=== PATIENT | female | born 1945 | race Caucasian/White ===

== ENCOUNTER 2019-07-12 08:49 | Emergency (ER) | payer OTHER, BC ==
[2019-07-12 08:56] VITALS: BMI 34.0
--- NOTE | 2019-07-12 09:11 | PDOC ---
History of Present Illness - General Chief Complaint: Back Pain Stated Complaint: LWR BACK PAIN Time Seen by Provider: 07/12/19 09:10 - History of Present Illness Initial Comments: 07/12/19 10:01 73 y.o F hx of chronic back pain s/p back surgery for spinal stenosis (2008), HTN, HLD, presents to the ER with increased left sided back pain since . this pain is more severe than usual and she denies any trauma associated events at the time the pain started. She has taken gabapentin and tramadol so far as prescribed by her PCP Dr. Dave, with no relief. Pain is exacerbated by movement and relieved with lying down on her back, or sitting forward. She denies any bowel or bladder symptoms, saddle anesthesia, fevers, chills, night sweats, Past History - Past Medical History Allergies/Adverse Reactions: Allergies Allergy/AdvReac Type Severity Reaction Status Date / Time No Known Drug Allergies Allergy Verified 07/12/19 08:56 Home Medications: Ambulatory Orders Pravastatin Sodium [Pravachol -] 40 mg PO HS #0 tablet 12/19/11 Timolol 0.5% [Timoptic] 1 ml OU DAILY #0 droperette 12/19/11 Atenolol/Chlorthalidone [Tenoretic 100/25 Tablet] 1 each PO DAILY 04/11/14 Diltiazem Cd [Cardizem Cd -] 300 mg PO DAILY 07/12/19 Methylprednisolone [Medrol Dose Marin] 4 mg PO ASDIR #21 tablet 07/12/19 Oxycodone HCl/Acetaminophen [Percocet 5-325 mg Tablet] 1 tab PO Q6H PRN #20 tablet MDD 4 tabs 07/12/19 Anemia: No Asthma: No Cancer: No Cardiac Disorders: No CVA: No COPD: No CHF: No Dementia: No Diabetes: No GI Disorders: Yes (H/O ACID REFLUX) Disorders: No HTN: Yes Hypercholesterolemia: Yes Liver Disease: No Seizures: No Thyroid Disease: No - Surgical History Abdominal Surgery: No Appendectomy: No Cardiac Surgery: No Cholecystectomy: No Lung Surgery: No Neurologic Surgery: Yes (PLATE IN NECK,RODS IN LOWER BACK) Orthopedic Surgery: Yes - Immunization History Immunization Up to Date: Yes - Psycho Social/Smoking Cessation Hx Smoking Status: Yes Smoking History: Current every day smoker Have you smoked in the past 12 months: Yes Number of Cigarettes Smoked Daily: 0 If you are a former smoker, when did you quit?: 2010 Information on smoking cessation initiated: Yes 'Breaking Loose' booklet given: 12/12/11 Hx Alcohol Use: No Drug/Substance Use Hx: No Substance Use Type: Alcohol Hx Substance Use Treatment: No Review of Systems - Review of Systems Constitutional: No: Chills, Fever HEENTM: No: Eye Pain Cardiac (ROS): No: Chest Pain, Lightheadedness ABD/GI: No: Nausea, Vomiting : No: Burning, Dysuria, Hematuria, Incontinence Musculoskeletal: Yes: Back Pain Neurological: No: Headache, Numbness *Physical Exam - Vital Signs Last Vital Signs Temp Pulse Resp BP Pulse Ox 97.3 F L 147 H 18 147/72 98 07/12/19 08:51 07/12/19 08:51 07/12/19 08:51 07/12/19 08:51 07/12/19 08:51 - Physical Exam 07/12/19 12:56 PE: GENERAL: Awake, alert, and fully oriented, in no acute distress HEAD: No signs of trauma, normocephalic, atraumatic EYES: PERRLA, EOMI, sclera anicteric, conjunctiva clear ENT: Auricles normal inspection, hearing grossly normal, nares patent, oropharynx clear without exudates. Moist mucosa NECK: Normal ROM, supple, no lymphadenopathy, JVD, or masses LUNGS: No distress, speaks full sentences, clear to auscultation bilaterally HEART: Regular rate and rhythm, normal S1 and S2, no murmurs, rubs or gallops, peripheral pulses normal and equal bilaterally. ABDOMEN: Soft, nontender, normoactive bowel sounds. No guarding, no rebound. No masses EXTREMITIES : Normal inspection, tenderness in left hip. and left calf. no midline spinal tenderness. negative straight leg raise. NEUROLOGICAL: Cranial nerves II through XII grossly intact. Normal speech, normal gait, no focal sensorimotor deficits SKIN: Warm, Dry, normal turgor, no rashes or lesions noted Medical Decision Making - Medical Decision Making 07/12/19 10:25 73 y.o F hx of chronic back pain s/p back surgery for spinal stenosis (2008), HTN, HLD, presents to the ER with increased left sided back pain lumbo-sacral x-rays hip and pelvis x-rays 07/12/19 10:46 Meds: tylenol, oxycodone 5mg PO 07/12/19 11:52 Pt reassessed, pain moderately better. 07/12/19 12:47 LUMBAR X-RAYS Degenerative lumbar spondylosis upper lumbar disc spaces with mild upper lumbar dextroscoliosis surgical hardware in place. HIP & PELVIS X-RAY no suspicious findings in the bony pelvis or radiographically in the right of left hip 07/12/19 12:49 Discharge - Discharge Information Problems reviewed: Yes Clinical Impression/Diagnosis: Back pain Qualifiers: Back pain location: low back pain Chronicity: chronic Back pain laterality: left Sciatica presence: with sciatica Sciatica laterality: sciatica of left side Qualified Code(s): M54.42 - Lumbago with sciatica, left side Condition: Stable Disposition: HOME - Admission No - Additional Discharge Information Prescriptions: Methylprednisolone [Medrol Dose Marin] 4 mg PO ASDIR #21 tablet Oxycodone HCl/Acetaminophen [Percocet 5-325 mg Tablet] 1 tab PO Q6H PRN #20 tablet MDD 4 tabs PRN Reason: Severe Pain - Follow up/Referral Referrals: Weston Espino MD, [facility] [Staff Physician] - Edgardo Zavala MD [Staff Physician] - - Patient Discharge Instructions Patient Printed Discharge Instructions: DI for Back Pain With Sciatica Additional Instructions: Please follow up with your Primary Care Doctor within 48-72 hours - call for an appointment. You have been given referral information for spine surgeons in this discharge paper work. Your care is not complete until you follow up with one of them.Ambulate as tolerated and no heavy lifting. Take medications as they have been described. do not drive or make any important decisions while on this medication for it can make you drowsy. If you experience any worsening pain, swelling, numbness, weakness please return to ER - Post Discharge Activity
[2019-07-12] MEDS ORDERED: ACETAMINOPHEN 500 MG TABLET (FP) PO ONE (09:49)
[2019-07-12] MEDS ORDERED: ACETAMINOPHEN 500 MG TABLET (FP) ONE (10:18)
[2019-07-12] MEDS ORDERED: oxyCODONE HCL 5 MG TABLET PO ONE (10:46)
--- NOTE | 2019-07-12 10:52 | PDOC ---
Attending Attestation - Resident Resident Name: Laura Marcus - ED Attending Attestation I have performed the following: I have examined & evaluated the patient, The case was reviewed & discussed with the resident, I agree w/resident's findings & plan - HPI HPI: 07/12/19 10:45 73-year-old female with history of spinal stenosis status post surgery in 2012 with intermittent need for pain medication, otherwise maintained on Tylenol at baseline and ambulates with walker presents now with progressive left low back pain since Thanksgiving, unrelenting despite pain medications by her PCP. Patient reports sharp pain from her left buttock radiating laterally and anteriorly to her left knee, no associated bowel or bladder issues or weakness, no paresthesias. Seen by PCP and prescribed tramadol and Tylenol without relief , she has required Percocet and cortisone injections in the past, presents for evaluation. No recent falls, but she did fall earlier this year before this pain exacerbation started. - Physicial Exam PE: 07/12/19 10:52 Afebrile, vitals as noted, heart rate normal on my examination, triage tachycardia noted. Patient states was walking in and was in pain. Alert seated in stretcher in no acute distress, speaking full sentences No midline spine tenderness to palpation or deformity. no hip ttp, skin normal 5/5 flex/extend b/l hips/knees/ankles/toes. 2+ distal pulses with intact sensation - Medical Decision Making 07/12/19 10:55 73-year-old female with history of low spine surgery with atraumatic exacerbation of lumbar radiculopathy, no other red flags on history or physical exam, neurovascularly intact. Lumbar spine x-ray given time since last imaging. Last MRI was in 2011 around her surgery. Adjust pain medication course, will give Medrol Dosepak and increase to Percocet , which the patient has tolerated well in the past PCP follow-up and spine specialty referral 07/12/19 12:49 feels much better after percocet, actually sitting with leg crossed now. agree with d/c plan, daughter at bedside. will switch from tramadol to percocet (more effective for patient in the past), with PCP and spine f/u. understands return criteria.
[2019-07-12] MEDS ORDERED: oxyCODONE HCL 5 MG TABLET ONE (11:20)
[2019-07-12] MEDS ORDERED: KETOROLAC TROMETHAMINE 60 MG/2 ML VIAL IM ONE ×2 (11:37→12:48)
[2019-07-12] MEDS ORDERED: KETOROLAC TROMETHAMINE 60 MG/2 ML VIAL ONE (12:41)
[2019-07-12 13:04] VITALS: BP 132/71; PULSE 57; TEMP 97.8
== END 2019-07-12 13:05 | disposition home or self-care (01) ==
LOC: JER 08:49
PROC: 3E0233Z Introduction of Anti-inflammatory into Muscle, Percutaneous Approach (ICD-10-PCS; principal; 2019-07-12)
PROC: 3E0233Z Introduction of Anti-inflammatory into Muscle, Percutaneous Approach (ICD-10-PCS; 2019-07-12)
DX: M54.42 Lumbago with sciatica, left side (principal); F17.210 Nicotine dependence, cigarettes, uncomplicated; K21.9 Gastro-esophageal reflux disease without esophagitis; I10 Essential (primary) hypertension; E78.00 Pure hypercholesterolemia, unspecified
CPT/HCPCS: 72100-TC-FY; 73523-TC-FY; 96372; 99281-25

== ENCOUNTER 2021-07-04 08:59 | Inpatient (IN) | payer OTHER, BC ==
[2021-07-04] MEDS ORDERED: SODIUM CHLORIDE 2,694 ML IV ONE (10:26)
[2021-07-04] MEDS ORDERED: SODIUM CHLORIDE 0.9% 500 ML INFUS.BAG IV ONE (10:37)
[2021-07-04 12:10] LABS: BASO % 0.7 % (0-2.0); EOS % 1.6 % (0-4.5); HEMATOCRIT 39.7 % (32.4-45.2); HEMOGLOBIN 13.5 GM/dL (10.7-15.3); LYMPH % 19.8 % (8-40); MCH 29.7 pg (25.7-33.7); MCHC 34.1 g/dl (32.0-36.0); MEAN CELL VOLUME 87.1 fl (80-96); NEUT % 70.9 % (42.8-82.8); PLATELET COUNT 212 10^3/uL (134-434); RBC 4.56 M/mm3 (3.60-5.2); RDW 13.6 % (11.6-15.6)
[2021-07-04 12:14] LABS: INR 1.03 (0.83-1.09)
[2021-07-04 12:17] LABS: ACTIVATED PTT 28.3 SECONDS (25.2-36.5)
[2021-07-04 12:26] LABS: ALBUMIN 3.4 g/dl (3.4-5.0); CHLORIDE 105 mmol/L (98-107); SODIUM 142 mmol/L (136-145)
[2021-07-04 12:27] LABS: ANION GAP 9 MMOL/L (8-16); CO2 28 mmol/L (21-32); GLUCOSE,RANDOM 77 mg/dL (74-106)
[2021-07-04 12:29] LABS: CREATININE 0.5 mg/dL (0.55-1.3)
[2021-07-04 12:30] LABS: SGOT/AST 18 U/L (15-37); SGPT/ALT 18 U/L (13-61)
[2021-07-04 12:31] LABS: BILIRUBIN,TOTAL 0.5 mg/dL (0.2-1); TOT PROT 6.7 g/dl (6.4-8.2)
[2021-07-04 12:32] LABS: ALK PHOS 73 U/L (45-117)
[2021-07-04 13:12] LABS: ERYTHROCYTE SEDIMENTATION RATE 29 mm/hr (0-30)
[2021-07-04] MEDS ORDERED: POTASSIUM CHLORIDE TABS 20 MEQ TABLET.ER (FP) PO ONE ×2 (13:12→14:52)
[2021-07-04] MEDS ORDERED: CLINDAMYCIN 900 MG PREMIX IVPB 900 MG/50 ML BAG IVPB ONE ×2 (13:52→14:52)
[2021-07-04] MEDS: ATORVASTATIN CA 10 MG TABLET (FP) PO SCH (22:28)
[2021-07-05 02:20] VITALS: BMI 31.4
[2021-07-05 04:00] LABS: PH,URINE 6.5 (5.0-8.0); URINE APPEARANCE CLEAR; URINE BILIRUBIN NEGATIVE (NEGATIVE); URINE COLOR YELLOW; URINE GLUCOSE (UA) NEGATIVE (NEGATIVE); URINE KETONE NEGATIVE (NEGATIVE); URINE LEUK ESTERASE NEGATIVE (NEGATIVE); URINE NITRITE NEGATIVE (NEGATIVE); URINE PROTEIN NEGATIVE (NEGATIVE); URINE UROBILINOGEN 0.2 mg/dL (0.2-1.0)
[2021-07-05] MEDS ORDERED: ATENOLOL PO SCH (10:00)
[2021-07-05] MEDS ORDERED: CHLORTHALIDONE 25 MG TABLET PO SCH (10:00)
[2021-07-05] MEDS ORDERED: [UNRECOGNIZED DRUG - OTHER] PO SCH (10:00)
[2021-07-05] MEDS ORDERED: CHLORTHALIDONE PO SCH (10:00)
[2021-07-05] MEDS ORDERED: PT OWN MED DRAWER 7, Y5N ONE (10:02)
[2021-07-05] MEDS: ENOXAPARIN NA (PORCINE) 40 MG/0.4 ML DISP.SYRIN SQ SCH (10:45)
[2021-07-05] MEDS: POTASSIUM CHLORIDE TABS 20 MEQ TABLET.ER (FP) PO SCH ×2 (10:45→21:54)
[2021-07-05] MEDS: NICOTINE 14 MG/24 HOURS TOPICAL PATCH TD SCH (10:45)
[2021-07-05] MEDS: ATENOLOL 50 MG TABLET (FP) PO SCH (12:34)
[2021-07-05 14:50] LABS: BASO % 0.7 % (0-2.0); EOS % 1.6 % (0-4.5); HEMATOCRIT 36.7 % (32.4-45.2); HEMOGLOBIN 12.6 GM/dL (10.7-15.3); MCH 29.8 pg (25.7-33.7); MCHC 34.3 g/dl (32.0-36.0); MEAN CELL VOLUME 86.9 fl (80-96); MEAN PLT VOLUME 8.4 fl (7.5-11.1); MONO % 6.9 % (3.8-10.2); NEUT % 71.8 % (42.8-82.8); PLATELET COUNT 208 10^3/uL (134-434); RBC 4.23 M/mm3 (3.60-5.2); RDW 13.6 % (11.6-15.6); WHITE BLOOD COUNT 4.7 K/mm3 (4.0-10.0)
[2021-07-05 15:15] LABS: CALCIUM 9.3 mg/dL (8.5-10.1); MAGNESIUM 1.8 mg/dL (1.8-2.4)
[2021-07-05 15:16] LABS: BLOOD UREA NITROGEN 10.6 mg/dL (7-18)
[2021-07-05 15:19] LABS: CREATININE 0.5 mg/dL (0.55-1.3); PHOSPHOROUS 2.8 mg/dL (2.5-4.9)
[2021-07-05] MEDS: ATORVASTATIN CA 10 MG TABLET (FP) PO SCH (21:54)
[2021-07-06] MEDS: POTASSIUM CHLORIDE TABS 20 MEQ TABLET.ER (FP) PO SCH ×2 (09:27→22:00)
[2021-07-06] MEDS: NICOTINE 14 MG/24 HOURS TOPICAL PATCH TD SCH (09:27)
[2021-07-06] MEDS: ENOXAPARIN NA (PORCINE) 40 MG/0.4 ML DISP.SYRIN SQ SCH (09:27)
[2021-07-06] MEDS: ATENOLOL 50 MG TABLET (FP) PO SCH (09:28)
[2021-07-06 11:08] LABS: BASO % 0.7 % (0-2.0); EOS % 1.3 % (0-4.5); HEMATOCRIT 38.9 % (32.4-45.2); HEMOGLOBIN 13.3 GM/dL (10.7-15.3); LYMPH % 15.7 % (8-40); MCH 29.8 pg (25.7-33.7); MCHC 34.2 g/dl (32.0-36.0); MEAN PLT VOLUME 8.2 fl (7.5-11.1); MONO % 5.9 % (3.8-10.2); NEUT % 76.4 % (42.8-82.8); PLATELET COUNT 224 10^3/uL (134-434); RBC 4.47 M/mm3 (3.60-5.2); RDW 13.8 % (11.6-15.6); WHITE BLOOD COUNT 5.5 K/mm3 (4.0-10.0)
[2021-07-06 11:52] LABS: CALCIUM 9.6 mg/dL (8.5-10.1)
[2021-07-06 11:53] LABS: MAGNESIUM 1.9 mg/dL (1.8-2.4)
[2021-07-06 11:54] LABS: BLOOD UREA NITROGEN 9.7 mg/dL (7-18)
[2021-07-06 11:56] LABS: CREATININE 0.5 mg/dL (0.55-1.3); PHOSPHOROUS 2.6 mg/dL (2.5-4.9)
[2021-07-06] MEDS: CHOLECALCIFEROL (VIT D3) 1,000 UNIT (25 MCG) TABLET PO SCH (13:45)
[2021-07-06] MEDS: ATORVASTATIN CA 10 MG TABLET (FP) PO SCH (22:00)
[2021-07-07] MEDS: CHOLECALCIFEROL (VIT D3) 1,000 UNIT (25 MCG) TABLET PO SCH (09:45)
[2021-07-07] MEDS: ENOXAPARIN NA (PORCINE) 40 MG/0.4 ML DISP.SYRIN SQ SCH (09:45)
[2021-07-07] MEDS: NICOTINE 14 MG/24 HOURS TOPICAL PATCH TD SCH (09:45)
[2021-07-07] MEDS: ATENOLOL 50 MG TABLET (FP) PO SCH (09:46)
[2021-07-07] MEDS: ATORVASTATIN CA 10 MG TABLET (FP) PO SCH (21:51)
[2021-07-08] MEDS: NICOTINE 14 MG/24 HOURS TOPICAL PATCH TD SCH (10:10)
[2021-07-08] MEDS: ENOXAPARIN NA (PORCINE) 40 MG/0.4 ML DISP.SYRIN SQ SCH (10:10)
[2021-07-08] MEDS: CHOLECALCIFEROL (VIT D3) 1,000 UNIT (25 MCG) TABLET PO SCH (10:10)
[2021-07-08] MEDS: ATENOLOL 50 MG TABLET (FP) PO SCH (10:11)
[2021-07-08 10:21] LABS: HEMATOCRIT 39.4 % (32.4-45.2); HEMOGLOBIN 13.5 GM/dL (10.7-15.3); MCHC 34.3 g/dl (32.0-36.0); MEAN CELL VOLUME 87.4 fl (80-96); MEAN PLT VOLUME 8.1 fl (7.5-11.1); PLATELET COUNT 227 10^3/uL (134-434); RBC 4.51 M/mm3 (3.60-5.2); RDW 13.4 % (11.6-15.6); WHITE BLOOD COUNT 5.8 K/mm3 (4.0-10.0)
[2021-07-08 10:42] LABS: CALCIUM 9.5 mg/dL (8.5-10.1)
[2021-07-08 10:43] LABS: ALBUMIN 3.1 g/dl (3.4-5.0); BLOOD UREA NITROGEN 12.6 mg/dL (7-18); MAGNESIUM 2.1 mg/dL (1.8-2.4)
[2021-07-08 10:46] LABS: CREATININE 0.5 mg/dL (0.55-1.3); PHOSPHOROUS 3.7 mg/dL (2.5-4.9)
[2021-07-08 10:47] LABS: BILIRUBIN,TOTAL 0.5 mg/dL (0.2-1); TOT PROT 6.3 g/dl (6.4-8.2)
[2021-07-08] MEDS ORDERED: ACETAMINOPHEN 325 MG TABLET (FP) PO ONE (14:00)
[2021-07-08 14:09] LABS: MYOGLOBIN SERUM 51 ng/mL (25-58)
[2021-07-08] MEDS: POTASSIUM CHLORIDE TABS 20 MEQ TABLET.ER (FP) PO SCH (21:25)
[2021-07-08] MEDS: ATORVASTATIN CA 10 MG TABLET (FP) PO SCH (21:25)
[2021-07-09] MEDS ORDERED: ACETAMINOPHEN 325 MG TABLET (FP) PO ONE (04:43)
[2021-07-09 10:21] LABS: CALCIUM 8.9 mg/dL (8.5-10.1)
[2021-07-09 10:22] LABS: BLOOD UREA NITROGEN 15.3 mg/dL (7-18)
[2021-07-09 10:25] LABS: CREATININE 0.5 mg/dL (0.55-1.3)
[2021-07-09] MEDS: ATENOLOL 50 MG TABLET (FP) PO SCH (11:32)
[2021-07-09] MEDS: POTASSIUM CHLORIDE TABS 20 MEQ TABLET.ER (FP) PO SCH (11:32)
[2021-07-09] MEDS: CHOLECALCIFEROL (VIT D3) 1,000 UNIT (25 MCG) TABLET PO SCH (11:32)
[2021-07-09] MEDS: ENOXAPARIN NA (PORCINE) 40 MG/0.4 ML DISP.SYRIN SQ SCH (11:33)
[2021-07-09] MEDS: NICOTINE 14 MG/24 HOURS TOPICAL PATCH TD SCH (11:33)
[2021-07-09 14:39] VITALS: BP 140/58; PULSE 59; TEMP 98.2
== END 2021-07-09 17:16 | DRG 93 ==
LOC: JER 08:59 → J5S 17:27 → OBSVTOIN 17:27 → JERBED 17:39 → UNDOADMOB 17:39 → INTOOBSV 17:39 → J5S 20:34 → JERBED 20:34 → UNDOADMOB 07-05 13:02 → J5S 07-05 13:02
PROVIDERS: ADMIT Internal Medicine; ATTEND Internal Medicine
DX: R29.6 Repeated falls (principal); E87.6 Hypokalemia; I10 Essential (primary) hypertension; E78.5 Hyperlipidemia, unspecified; M25.462 Effusion, left knee; M54.42 Lumbago with sciatica, left side; G89.29 Other chronic pain; M17.0 Bilateral primary osteoarthritis of knee
CPT/HCPCS: 36415; 70450-TC; 70551-TC; 71045-TC-FY; 72100-TC-FY; 72131-TC; 73562-TC-LT-FY; 73590-TC-LT-FY; 73630-TC-LT; 80048; 80053; 81003; 82085; 82550; 82607; 82746; 83036; 83605; 83735; 83874; 84100; 84439; 84443; 84481; 84484; 85025; 85027; 85610; 85651; 85730; 86038; 86140; 87040; 87086; 93005; 93010; 93971-TC; 97116-GP; 97162-GP; 99285-25; C9803; U0003; U0005

== ENCOUNTER 2021-11-25 09:40 | Observation (INO) | payer OTHER, BC ==
[2021-11-25 12:47] LABS: BASO % 0.6 % (0-2.0); EOS % 0.5 % (0-4.5); HEMATOCRIT 41.3 % (32.4-45.2); HEMOGLOBIN 13.9 GM/dL (10.7-15.3); LYMPH % 11.2 % (8-40); MCH 29.2 pg (25.7-33.7); MCHC 33.5 g/dl (32.0-36.0); MEAN PLT VOLUME 8.1 fl (7.5-11.1); NEUT % 80.7 % (42.8-82.8); PLATELET COUNT 197 10^3/uL (134-434); RBC 4.75 M/mm3 (3.60-5.2); RDW 13.7 % (11.6-15.6); WHITE BLOOD COUNT 7.5 K/mm3 (4.0-10.0)
[2021-11-25 13:08] LABS: CALCIUM 10.2 mg/dL (8.5-10.1)
[2021-11-25 13:09] LABS: ALBUMIN 3.9 g/dl (3.4-5.0); BLOOD UREA NITROGEN 14.2 mg/dL (7-18)
[2021-11-25 13:11] LABS: CREATININE 0.5 mg/dL (0.55-1.3)
[2021-11-25 13:13] LABS: BILIRUBIN,TOTAL 0.6 mg/dL (0.2-1)
[2021-11-25] MEDS ORDERED: ACETAMINOPHEN 325 MG TABLET (FP) PO PRN ×2 (13:45→21:30)
[2021-11-25] MEDS ORDERED: ATENOLOL 50 MG TABLET (FP) ONE (14:51)
[2021-11-25] MEDS: ATENOLOL 50 MG TABLET (FP) PO SCH (14:56)
[2021-11-25 20:09] LABS: PH,URINE 5.5 (5.0-8.0); URINE APPEARANCE CLOUDY; URINE BILIRUBIN NEGATIVE (NEGATIVE); URINE COLOR YELLOW; URINE GLUCOSE (UA) NEGATIVE (NEGATIVE); URINE KETONE TRACE (NEGATIVE); URINE LEUK ESTERASE NEGATIVE (NEGATIVE); URINE NITRITE NEGATIVE (NEGATIVE); URINE PROTEIN NEGATIVE (NEGATIVE)
[2021-11-25] MEDS ORDERED: ACETAMINOPHEN 1000 MG/100 ML BAG IVPB ONE (21:36)
[2021-11-25] MEDS ORDERED: ATORVASTATIN CA 20 MG TABLET (FP) PO SCH (22:00)
[2021-11-25] MEDS ORDERED: ATORVASTATIN CA 20 MG TABLET (FP) ONE (22:03)
[2021-11-25] MEDS ORDERED: ACETAMINOPHEN INJECTION 100 ML IVPB ONE (22:03)
[2021-11-26 02:58] VITALS: BMI 29.7
[2021-11-26 07:19] LABS: CALCIUM 9.6 mg/dL (8.5-10.1)
[2021-11-26 07:20] LABS: BLOOD UREA NITROGEN 17.7 mg/dL (7-18)
[2021-11-26 07:23] LABS: CREATININE 0.4 mg/dL (0.55-1.3)
[2021-11-26] MEDS: ATENOLOL 50 MG TABLET (FP) PO SCH (10:59)
[2021-11-26] MEDS: ENOXAPARIN NA (PORCINE) 40 MG/0.4 ML DISP.SYRIN SQ SCH (10:59)
[2021-11-26] MEDS ORDERED: POTASSIUM CHLORIDE ORAL LIQUID 20 MEQ/15 ML PO ONE (11:30)
[2021-11-26] MEDS ORDERED: ATORVASTATIN CA 10 MG TABLET (FP) PO SCH (18:06)
[2021-11-26] MEDS: TIMOLOL 0.5% OPHTHALMIC SOL 5 ML BOTTLE OU SCH (21:34)
[2021-11-26] MEDS: MEMANTINE HCL 5 MG TABLET (UD) PO SCH (21:34)
[2021-11-27 09:36] VITALS: PULSE 62
[2021-11-27] MEDS: MEMANTINE HCL 5 MG TABLET (UD) PO SCH (09:36)
[2021-11-27] MEDS: ENOXAPARIN NA (PORCINE) 40 MG/0.4 ML DISP.SYRIN SQ SCH (09:36)
[2021-11-27] MEDS: TIMOLOL 0.5% OPHTHALMIC SOL 5 ML BOTTLE OU SCH (11:13)
[2021-11-27 14:28] VITALS: BP 137/66; TEMP 99.3
== END 2021-11-27 19:16 ==
LOC: JER 09:40 → JERBED 14:20 → J6S 23:28
PROVIDERS: ADMIT Internal Medicine; ATTEND Internal Medicine
PROC: 3E033NZ Introduction of Analgesics, Hypnotics, Sedatives into Peripheral Vein, Percutaneous Approach (ICD-10-PCS; principal; 2021-11-25)
PROC: 3E023GC Introduction of Other Therapeutic Substance into Muscle, Percutaneous Approach (ICD-10-PCS; 2021-11-25)
DX: S82.302A Unspecified fracture of lower end of left tibia, initial encounter for closed fracture (principal); M62.81 Muscle weakness (generalized); M79.672 Pain in left foot; M79.671 Pain in right foot; R29.6 Repeated falls; G89.29 Other chronic pain; M54.9 Dorsalgia, unspecified; I35.0 Nonrheumatic aortic (valve) stenosis; I10 Essential (primary) hypertension; E78.5 Hyperlipidemia, unspecified; W18.39XA Other fall on same level, initial encounter; Y93.89 Activity, other specified; Y92.099 Unspecified place in other non-institutional residence as the place of occurrence of the external cause; F03.90 Unspecified dementia, unspecified severity, without behavioral disturbance, psychotic disturbance, mood disturbance, and anxiety; K21.9 Gastro-esophageal reflux disease without esophagitis; Z87.891 Personal history of nicotine dependence; Z29.8 Encounter for other specified prophylactic measures
CPT/HCPCS: 36415; 73562-TC-LT-FY; 73562-TC-RT-FY; 73610-TC-LT-FY; 73610-TC-RT-FY; 73630-TC-LT; 73630-TC-RT-FY; 80048; 80053; 81003; 84484; 85025; 87086; 93005; 93010; 96372; 96374; 97116-GP; 97161-GP; 99285-25; C9803-CS; G0378; U0003; U0005

== ENCOUNTER 2022-08-23 11:07 | Inpatient (IN) | payer OTHER, BC ==
[2022-08-23 12:12] LABS: BASO % 0.4 % (0-2.0); EOS % 0.2 % (0-4.5); HEMOGLOBIN 14.1 GM/dL (10.7-15.3); LYMPH % 9.7 % (8-40); MCH 29.4 pg (25.7-33.7); MCHC 33.5 g/dl (32.0-36.0); MEAN CELL VOLUME 87.6 fl (80-96); MEAN PLT VOLUME 8.9 fl (7.5-11.1); MONO % 3.1 % (3.8-10.2); NEUT % 86.6 % (42.8-82.8); PLATELET COUNT 243 10^3/uL (134-434); RBC 4.79 M/mm3 (3.60-5.2); RDW 13.7 % (11.6-15.6); WHITE BLOOD COUNT 8.2 K/mm3 (4.0-10.0)
[2022-08-23 12:20] LABS: INR 1.11 (0.83-1.09); PROTHROMBIN TIME (PATIENT) 12.8 SEC (9.7-13.0)
[2022-08-23 12:23] LABS: ACTIVATED PTT 33.2 SECONDS (25.2-36.5)
[2022-08-23 13:04] LABS: ALBUMIN 4.1 g/dl (3.4-5.0); BLOOD UREA NITROGEN 13.7 mg/dL (7-18); CALCIUM 10.1 mg/dL (8.5-10.1)
[2022-08-23 13:07] LABS: CREATININE 0.5 mg/dL (0.55-1.3)
[2022-08-23 13:09] LABS: BILIRUBIN,TOTAL 0.8 mg/dL (0.2-1); TOT PROT 7.2 g/dl (6.4-8.2)
[2022-08-23 16:39] LABS: PH,URINE 7.5 (5.0-8.0); URINE APPEARANCE CLOUDY; URINE BILIRUBIN NEGATIVE (NEGATIVE); URINE COLOR YELLOW; URINE GLUCOSE (UA) NEGATIVE (NEGATIVE); URINE KETONE 1+ (NEGATIVE); URINE LEUK ESTERASE NEGATIVE (NEGATIVE); URINE NITRITE NEGATIVE (NEGATIVE); URINE PROTEIN TRACE (NEGATIVE); URINE UROBILINOGEN 0.2 mg/dL (0.2-1.0)
[2022-08-23] MEDS ORDERED: ACETAMINOPHEN 325 MG TABLET (FP) PO PRN (23:25)
[2022-08-24] MEDS: SODIUM CHLORIDE 0.45% 1,000 ML IV SCH (05:19)
[2022-08-24] MEDS ORDERED: dilTIAZem HCL 60 MG TABLET ONE (09:28)
[2022-08-24] MEDS ORDERED: LISINOPRIL 10 MG TABLET ONE (09:29)
[2022-08-24] MEDS: LISINOPRIL 10 MG TABLET PO SCH (09:29)
[2022-08-24] MEDS: MEMANTINE HCL 5 MG TABLET (UD) PO SCH ×2 (12:40→22:00)
[2022-08-24] MEDS: TIMOLOL 0.5% OPHTHALMIC SOL 5 ML BOTTLE OU SCH (21:43)
[2022-08-24] MEDS ORDERED: ATORVASTATIN CA 10 MG TABLET (FP) ONE (21:54)
[2022-08-24] MEDS: ATORVASTATIN CA 10 MG TABLET (FP) PO SCH (22:00)
[2022-08-25] MEDS: SODIUM CHLORIDE 0.45% 1,000 ML IV SCH ×2 (06:14→21:22)
[2022-08-25] MEDS ORDERED: dilTIAZem HCL 60 MG TABLET ONE (07:46)
[2022-08-25] MEDS ORDERED: LISINOPRIL 10 MG TABLET ONE (07:47)
[2022-08-25 08:01] LABS: BASO % 0.4 % (0-2.0); EOS % 1.5 % (0-4.5); HEMATOCRIT 36.3 % (32.4-45.2); HEMOGLOBIN 12.1 GM/dL (10.7-15.3); LYMPH % 18.7 % (8-40); MCH 29.4 pg (25.7-33.7); MCHC 33.4 g/dl (32.0-36.0); MEAN CELL VOLUME 87.9 fl (80-96); MEAN PLT VOLUME 9.1 fl (7.5-11.1); MONO % 8.4 % (3.8-10.2); PLATELET COUNT 189 10^3/uL (134-434); RBC 4.13 M/mm3 (3.60-5.2); RDW 13.5 % (11.6-15.6); WHITE BLOOD COUNT 5.2 K/mm3 (4.0-10.0)
[2022-08-25] MEDS: LISINOPRIL 10 MG TABLET PO SCH (09:59)
[2022-08-25] MEDS: MEMANTINE HCL 5 MG TABLET (UD) PO SCH ×2 (09:59→21:21)
[2022-08-25] MEDS: TIMOLOL 0.5% OPHTHALMIC SOL 5 ML BOTTLE OU SCH (13:32)
[2022-08-25] MEDS: ATORVASTATIN CA 10 MG TABLET (FP) PO SCH (21:21)
[2022-08-26 01:17] VITALS: BMI 23.0
[2022-08-26] MEDS: SODIUM CHLORIDE 0.45% 1,000 ML IV SCH (01:27)
[2022-08-26] MEDS: TIMOLOL 0.5% OPHTHALMIC SOL 5 ML BOTTLE OU SCH (10:31)
[2022-08-26] MEDS: MEMANTINE HCL 5 MG TABLET (UD) PO SCH ×2 (10:31→22:20)
[2022-08-26] MEDS: LISINOPRIL 10 MG TABLET PO SCH (10:31)
[2022-08-26] MEDS: ATORVASTATIN CA 10 MG TABLET (FP) PO SCH (22:20)
[2022-08-27] MEDS: SODIUM CHLORIDE 0.45% 1,000 ML IV SCH ×2 (00:59→17:20)
[2022-08-27 07:30] LABS: BASO % 0.4 % (0-2.0); EOS % 2.2 % (0-4.5); HEMATOCRIT 33.5 % (32.4-45.2); LYMPH % 17.3 % (8-40); MCH 29.2 pg (25.7-33.7); MEAN CELL VOLUME 88.5 fl (80-96); MEAN PLT VOLUME 8.8 fl (7.5-11.1); MONO % 7.5 % (3.8-10.2); NEUT % 72.6 % (42.8-82.8); PLATELET COUNT 163 10^3/uL (134-434); RBC 3.78 M/mm3 (3.60-5.2); RDW 13.8 % (11.6-15.6)
[2022-08-27 07:51] LABS: CALCIUM 8.9 mg/dL (8.5-10.1)
[2022-08-27 07:52] LABS: BLOOD UREA NITROGEN 17.4 mg/dL (7-18)
[2022-08-27 07:55] LABS: CREATININE 0.4 mg/dL (0.55-1.3)
[2022-08-27 07:57] LABS: BILIRUBIN,TOTAL 0.3 mg/dL (0.2-1)
[2022-08-27 07:59] LABS: ALBUMIN 2.6 g/dl (3.4-5.0); TOT PROT 4.9 g/dl (6.4-8.2)
[2022-08-27] MEDS ORDERED: METHIMAZOLE 5 MG TABLET PO SCH ×2 (10:00→22:00)
[2022-08-27] MEDS: TIMOLOL 0.5% OPHTHALMIC SOL 5 ML BOTTLE OU SCH (10:32)
[2022-08-27] MEDS: MEMANTINE HCL 5 MG TABLET (UD) PO SCH ×2 (10:32→21:47)
[2022-08-27] MEDS: LISINOPRIL 10 MG TABLET PO SCH (10:32)
[2022-08-27] MEDS: POLYETHYLENE GLYCOL (HEALTHYLAX) 3350 17 GM PACKET PO SCH (12:49)
[2022-08-27] MEDS: ATORVASTATIN CA 10 MG TABLET (FP) PO SCH (21:47)
[2022-08-28] MEDS: SODIUM CHLORIDE 0.45% 1,000 ML IV SCH ×2 (03:14→22:18)
[2022-08-28] MEDS: POLYETHYLENE GLYCOL (HEALTHYLAX) 3350 17 GM PACKET PO SCH (11:44)
[2022-08-28] MEDS: METHIMAZOLE 5 MG TABLET PO SCH (11:45)
[2022-08-28] MEDS: MEMANTINE HCL 5 MG TABLET (UD) PO SCH ×2 (11:45→22:19)
[2022-08-28] MEDS: TIMOLOL 0.5% OPHTHALMIC SOL 5 ML BOTTLE OU SCH (11:45)
[2022-08-28] MEDS: LISINOPRIL 10 MG TABLET PO SCH (11:45)
[2022-08-28] MEDS: ATORVASTATIN CA 10 MG TABLET (FP) PO SCH (22:19)
[2022-08-29 09:34] VITALS: BP 161/58; PULSE 80; RESP 16; TEMP 99
[2022-08-29] MEDS: MEMANTINE HCL 5 MG TABLET (UD) PO SCH (09:34)
[2022-08-29] MEDS: LISINOPRIL 10 MG TABLET PO SCH (09:34)
[2022-08-29] MEDS: TIMOLOL 0.5% OPHTHALMIC SOL 5 ML BOTTLE OU SCH (09:35)
[2022-08-29] MEDS: POLYETHYLENE GLYCOL (HEALTHYLAX) 3350 17 GM PACKET PO SCH (09:35)
[2022-08-29] MEDS: METHIMAZOLE 5 MG TABLET PO SCH (09:35)
== END 2022-08-29 15:05 | DRG 312 ==
LOC: JER 11:07 → JERBED 17:17 → J4S 08-25 17:51 → OBSVTOIN 08-26 11:01
PROVIDERS: ADMIT Internal Medicine; ATTEND Internal Medicine
DX: R55 Syncope and collapse (principal); F05 Delirium due to known physiological condition; I31.39 Other pericardial effusion (noninflammatory); E78.5 Hyperlipidemia, unspecified; E05.90 Thyrotoxicosis, unspecified without thyrotoxic crisis or storm; F03.90 Unspecified dementia, unspecified severity, without behavioral disturbance, psychotic disturbance, mood disturbance, and anxiety; K56.41 Fecal impaction; I12.9 Hypertensive chronic kidney disease with stage 1 through stage 4 chronic kidney disease, or unspecified chronic kidney disease; N18.9 Chronic kidney disease, unspecified; R29.6 Repeated falls; S00.83XA Contusion of other part of head, initial encounter; S05.11XA Contusion of eyeball and orbital tissues, right eye, initial encounter; W06.XXXA Fall from bed, initial encounter; Y92.098 Other place in other non-institutional residence as the place of occurrence of the external cause
CPT/HCPCS: 36415; 70450-TC; 70486-TC; 71045-TC-FY; 72125-TC; 72170-TC-FY; 73564-TC-LT-FY; 80053; 81003; 82550; 82553; 82607; 83735; 84439; 84443; 84481; 84484; 85025; 85610; 85730; 86376; 86850; 86900; 86901; 87086; 87186; 93005; 93010; 93306-TC; 93880-TC; 97116-GP; 97161-GP; 99291; C9803-CS; G0378; U0003; U0005

== ENCOUNTER 2023-06-10 19:48 | Inpatient (IN) | payer OTHER, BC ==
[2023-06-10 19:56] VITALS: BMI 29.9
[2023-06-10] MEDS ORDERED: SODIUM CHLORIDE 0.45% 1,000 ML IV SCH (21:15)
[2023-06-10 21:32] LABS: BASO % 0.1 % (0-2.0); EOS % 0.4 % (0-4.5); HEMATOCRIT 42.4 % (32.4-45.2); HEMOGLOBIN 13.9 GM/dL (10.7-15.3); LYMPH % 7.2 % (8-40); MCH 28.8 pg (25.7-33.7); MCHC 32.9 g/dl (32.0-36.0); MEAN CELL VOLUME 87.5 fl (80-96); MEAN PLT VOLUME 8.1 fl (7.5-11.1); MONO % 7.9 % (3.8-10.2); NEUT % 84.4 % (42.8-82.8); PLATELET COUNT 304 10^3/uL (134-434); RBC 4.84 M/mm3 (3.60-5.2); RDW 14.8 % (11.6-15.6); WHITE BLOOD COUNT 10.3 K/mm3 (4.0-10.0)
[2023-06-10 21:35] LABS: VENOUS BASE EXCESS 5.5 mmol/L (-2-2); VENOUS O2 SATURATION 95.7 % (70-80); VENOUS PCO2 38.7 mmHg (38-52); VENOUS PH 7.493 (7.310-7.410)
[2023-06-10 21:52] LABS: CHLORIDE 123 mmol/L (98-107); SODIUM 156 mmol/L (136-145)
[2023-06-10 21:54] LABS: ALBUMIN 2.6 g/dl (3.4-5.0); BLOOD UREA NITROGEN 37.7 mg/dL (7-18); CALCIUM 9.4 mg/dL (8.5-10.1); CO2 31 mmol/L (21-32); GLUCOSE,RANDOM 179 mg/dL (74-106); MAGNESIUM 2.3 mg/dL (1.8-2.4)
[2023-06-10 21:57] LABS: CREATININE 0.8 mg/dL (0.55-1.3); SGOT/AST 13 U/L (15-37); SGPT/ALT 39 U/L (13-61)
[2023-06-10 21:59] LABS: BILIRUBIN,TOTAL 0.4 mg/dL (0.2-1); TOT PROT 6.4 g/dl (6.4-8.2)
[2023-06-10 22:00] LABS: ALK PHOS 84 U/L (45-117)
[2023-06-10] MEDS ORDERED: CALCIUM CHLORIDE 10% 1 GM/10 ML *VIAL IVPUSH ONE (22:02)
[2023-06-10] MEDS ORDERED: CALCIUM CHLORIDE 1 GM/10 ML *DISP.SYRIN ONE (22:05)
[2023-06-10] MEDS: KCL 10 MEQ IVPB 10 MEQ/100 ML INFUS.BAG IVPB SCH ×2 (22:15→23:58)
[2023-06-10 22:25] LABS: ANION GAP 2 mmol/L (4-13); POTASSIUM 2.9 mmol/L (3.5-5.1)
[2023-06-11 01:35] LABS: EPI CELLS >36 /uL (0-25.1); HYALINE CASTS 30 /uL (0-3.1); URINE APPEARANCE TURBID; URINE BACTERIA >9,000 /uL (0-1359); URINE BILIRUBIN NEGATIVE (NEGATIVE); URINE COLOR ORANGE; URINE GLUCOSE (UA) NEGATIVE (NEGATIVE); URINE KETONE NEGATIVE (NEGATIVE); URINE LEUK ESTERASE 3+ (NEGATIVE); URINE NITRITE POSITIVE (NEGATIVE); URINE PROTEIN 2+ (NEGATIVE); URINE UROBILINOGEN 0.2 mg/dL (0.2-1.0); URINE WBC 11977 /uL (0-25.8)
[2023-06-11] MEDS ORDERED: CEFTRIAXONE 1,000 MG in DEXTROSE 5%-WATER - 50 ML IVPB ONE (01:40)
[2023-06-11] MEDS: KCL 10 MEQ IVPB 10 MEQ/100 ML INFUS.BAG IVPB SCH ×4 (01:50→12:03)
[2023-06-11 01:55] LABS: POTASSIUM 3.2 mmol/L (3.5-5.1)
[2023-06-11 01:56] LABS: CALCIUM 9.9 mg/dL (8.5-10.1)
[2023-06-11 01:57] LABS: BLOOD UREA NITROGEN 35.8 mg/dL (7-18)
[2023-06-11 02:00] LABS: CREATININE 0.8 mg/dL (0.55-1.3)
[2023-06-11] MEDS ORDERED: CEFTRIAXONE 1 GM/50 ML BAG ONE ×2 (02:51→09:38)
[2023-06-11 03:26] LABS: URINE RBC 948.6 /uL (0-23.9); YEAST NONE SEEN (NEGATIVE)
[2023-06-11] MEDS ORDERED: VANCOMYCIN PREMIX 1.5 GM 1,500 MG/300 ML BAG IVPB SCH ×2 (06:00→09:00)
[2023-06-11] MEDS ORDERED: SODIUM CHLORIDE 0.45% 1,000 ML IV SCH (06:28)
[2023-06-11] MEDS ORDERED: KCL 10 MEQ IVPB 10 MEQ/100 ML INFUS.BAG IVPB SCH (08:00)
[2023-06-11 08:17] LABS: HEMATOCRIT 39.8 % (32.4-45.2); HEMOGLOBIN 13.1 GM/dL (10.7-15.3); MCH 29.1 pg (25.7-33.7); MCHC 32.9 g/dl (32.0-36.0); MEAN CELL VOLUME 88.6 fl (80-96); MEAN PLT VOLUME 8.4 fl (7.5-11.1); PLATELET COUNT 265 10^3/uL (134-434); RDW 14.4 % (11.6-15.6)
[2023-06-11 08:19] LABS: CHLORIDE 121 mmol/L (98-107); SODIUM 155 mmol/L (136-145)
[2023-06-11 08:21] LABS: CALCIUM 9.3 mg/dL (8.5-10.1)
[2023-06-11 08:22] LABS: ALBUMIN 2.4 g/dl (3.4-5.0); BLOOD UREA NITROGEN 35.5 mg/dL (7-18); CO2 32 mmol/L (21-32); GLUCOSE,RANDOM 164 mg/dL (74-106)
[2023-06-11 08:25] LABS: CREATININE 0.7 mg/dL (0.55-1.3); PHOSPHOROUS 2.8 mg/dL (2.5-4.9); SGOT/AST 10 U/L (15-37); SGPT/ALT 33 U/L (13-61)
[2023-06-11 08:26] LABS: TOT PROT 5.8 g/dl (6.4-8.2)
[2023-06-11 08:27] LABS: ALK PHOS 76 U/L (45-117); BILIRUBIN,TOTAL 0.3 mg/dL (0.2-1)
[2023-06-11 08:30] LABS: ANION GAP 2 mmol/L (4-13); POTASSIUM 2.8 mmol/L (3.5-5.1)
[2023-06-11] MEDS ORDERED: KCL 10 MEQ IVPB 20 MEQ/200 ML INFUS.BAG IVPB ONE (09:38)
[2023-06-11] MEDS ORDERED: HYDROCHLOROTHIAZIDE 25 MG TABLET (FP) PO SCH (10:00)
[2023-06-11] MEDS: LISINOPRIL 10 MG TABLET PO SCH (10:00)
[2023-06-11] MEDS: METHIMAZOLE 5 MG TABLET PO SCH (10:00)
[2023-06-11] MEDS ORDERED: CEFTRIAXONE 1 GM in DEXTROSE 5%-WATER - 50 ML IVPB SCH (10:00)
[2023-06-11] MEDS: ATENOLOL 50 MG TABLET (FP) PO SCH (10:00)
[2023-06-11] MEDS: MEMANTINE HCL 5 MG TABLET (UD) PO SCH ×2 (10:00→21:52)
[2023-06-11] MEDS: ENOXAPARIN NA (PORCINE) 40 MG/0.4 ML DISP.SYRIN SQ SCH (10:50)
[2023-06-11] MEDS ORDERED: KCL 10 MEQ IVPB 10 MEQ/100 ML INFUS.BAG IVPB ONE (12:01)
[2023-06-11] MEDS: TIMOLOL 0.5% OPHTHALMIC SOL 5 ML BOTTLE OU SCH (12:02)
[2023-06-11] MEDS ORDERED: PIPERACILLIN/TAZOB 3.375 GM 3.375 GM/50 ML BAG IVPB ONE (14:09)
[2023-06-11] MEDS: PIPERACILLIN/TAZOB 3.375 GM 3.375 GM in DEXTROSE 5%-WATER - 50 ML IVPB SCH ×2 (14:11→17:38)
[2023-06-11] MEDS: dilTIAZem HCL 60 MG TABLET PO SCH ×2 (17:38→21:52)
[2023-06-11] MEDS ORDERED: SODIUM CHLORIDE 0.45% 1,000 ML with POTASSIUM CHLORIDE 20 MEQ IV SCH (21:11)
[2023-06-11] MEDS: ATORVASTATIN CA 10 MG TABLET (FP) PO SCH (21:52)
[2023-06-11] MEDS ORDERED: SODIUM CHLORIDE 0.45%/POT 20 MEQ/1,000 ML INFUS.BAG IV SCH (22:30)
[2023-06-12] MEDS: PIPERACILLIN/TAZOB 3.375 GM 3.375 GM in DEXTROSE 5%-WATER - 50 ML IVPB SCH ×3 (01:47→17:22)
[2023-06-12] MEDS: dilTIAZem HCL 60 MG TABLET PO SCH ×4 (05:32→23:06)
[2023-06-12] MEDS ORDERED: VANCOMYCIN PREMIX 1.5 GM 1,500 MG/300 ML BAG IVPB SCH (09:00)
[2023-06-12 09:20] LABS: BASO % 0.2 % (0-2.0); EOS % 1.9 % (0-4.5); HEMATOCRIT 39.5 % (32.4-45.2); HEMOGLOBIN 12.5 GM/dL (10.7-15.3); LYMPH % 10.5 % (8-40); MCH 28.4 pg (25.7-33.7); MCHC 31.7 g/dl (32.0-36.0); MEAN CELL VOLUME 89.7 fl (80-96); MEAN PLT VOLUME 8.5 fl (7.5-11.1); MONO % 6.1 % (3.8-10.2); NEUT % 81.3 % (42.8-82.8); PLATELET COUNT 241 10^3/uL (134-434); RBC 4.41 M/mm3 (3.60-5.2); RDW 14.1 % (11.6-15.6); WHITE BLOOD COUNT 9.3 K/mm3 (4.0-10.0)
[2023-06-12] MEDS ORDERED: PIPERACILLIN/TAZOBACTAM 3.375 GM VIAL IVPB ONE (09:42)
[2023-06-12] MEDS: ENOXAPARIN NA (PORCINE) 40 MG/0.4 ML DISP.SYRIN SQ SCH (09:56)
[2023-06-12] MEDS: MEMANTINE HCL 5 MG TABLET (UD) PO SCH ×2 (09:57→22:52)
[2023-06-12] MEDS: ATENOLOL 50 MG TABLET (FP) PO SCH (09:57)
[2023-06-12] MEDS: METHIMAZOLE 5 MG TABLET PO SCH (09:57)
[2023-06-12] MEDS: LISINOPRIL 10 MG TABLET PO SCH (09:57)
[2023-06-12 10:09] LABS: CHLORIDE 120 mmol/L (98-107); SODIUM 155 mmol/L (136-145)
[2023-06-12 10:15] LABS: ALBUMIN 2.4 g/dl (3.4-5.0); CALCIUM 9.3 mg/dL (8.5-10.1); CO2 29 mmol/L (21-32); GLUCOSE,RANDOM 165 mg/dL (74-106)
[2023-06-12 10:18] LABS: CREATININE 0.7 mg/dL (0.55-1.3); SGOT/AST 9 U/L (15-37); SGPT/ALT 29 U/L (13-61)
[2023-06-12 10:20] LABS: BILIRUBIN,TOTAL 0.6 mg/dL (0.2-1); TOT PROT 5.8 g/dl (6.4-8.2)
[2023-06-12 10:21] LABS: ALK PHOS 71 U/L (45-117)
[2023-06-12 10:23] LABS: ANION GAP 6 mmol/L (4-13); POTASSIUM 2.8 mmol/L (3.5-5.1)
[2023-06-12] MEDS ORDERED: POTASSIUM CHLORIDE ORAL LIQUID 20 MEQ/15 ML PO ONE (10:29)
[2023-06-12] MEDS: TIMOLOL 0.5% OPHTHALMIC SOL 5 ML BOTTLE OU SCH (11:23)
[2023-06-12] MEDS: D5-1/2NS+20 MEQ KCL - 20 MEQ/1,000 ML INFUS.BAG IV SCH ×2 (11:24→23:01)
[2023-06-12] MEDS: KCL 10 MEQ IVPB 10 MEQ/100 ML INFUS.BAG IVPB SCH ×3 (11:24→13:17)
[2023-06-12] MEDS: ATORVASTATIN CA 10 MG TABLET (FP) PO SCH (22:52)
[2023-06-13] MEDS: PIPERACILLIN/TAZOB 3.375 GM 3.375 GM in DEXTROSE 5%-WATER - 50 ML IVPB SCH ×2 (01:35→09:11)
[2023-06-13] MEDS: dilTIAZem HCL 60 MG TABLET PO SCH ×3 (06:25→21:56)
[2023-06-13 08:45] LABS: POTASSIUM 3.5 mmol/L (3.5-5.1)
[2023-06-13 08:51] LABS: BLOOD UREA NITROGEN 25.6 mg/dL (7-18)
[2023-06-13 08:54] LABS: CREATININE 0.7 mg/dL (0.55-1.3)
[2023-06-13 08:55] LABS: CALCIUM 8.9 mg/dL (8.5-10.1)
[2023-06-13] MEDS: MEMANTINE HCL 5 MG TABLET (UD) PO SCH ×2 (09:08→21:56)
[2023-06-13] MEDS: ATENOLOL 50 MG TABLET (FP) PO SCH (09:08)
[2023-06-13] MEDS: LISINOPRIL 10 MG TABLET PO SCH (09:08)
[2023-06-13] MEDS: ENOXAPARIN NA (PORCINE) 40 MG/0.4 ML DISP.SYRIN SQ SCH (09:08)
[2023-06-13] MEDS: METHIMAZOLE 5 MG TABLET PO SCH (09:08)
[2023-06-13] MEDS: TIMOLOL 0.5% OPHTHALMIC SOL 5 ML BOTTLE OU SCH (09:10)
[2023-06-13] MEDS: D5-1/2NS+20 MEQ KCL - 20 MEQ/1,000 ML INFUS.BAG IV SCH ×2 (10:35→23:59)
[2023-06-13] MEDS: CEFTRIAXONE 2 GM in DEXTROSE 5%-WATER 100 ML IVPB SCH (14:07)
[2023-06-13] MEDS: AMINO ACIDS/PROTEIN HYDROLYS 30 ML LIQUID.PKT PO SCH (16:41)
[2023-06-13] MEDS: ATORVASTATIN CA 10 MG TABLET (FP) PO SCH (21:56)
[2023-06-14] MEDS: dilTIAZem HCL 60 MG TABLET PO SCH ×3 (06:13→22:33)
[2023-06-14] MEDS: AMINO ACIDS/PROTEIN HYDROLYS 30 ML LIQUID.PKT PO SCH ×2 (08:05→17:10)
[2023-06-14] MEDS: CEFTRIAXONE 2 GM in DEXTROSE 5%-WATER 100 ML IVPB SCH (09:58)
[2023-06-14] MEDS: ENOXAPARIN NA (PORCINE) 40 MG/0.4 ML DISP.SYRIN SQ SCH (09:58)
[2023-06-14] MEDS: LISINOPRIL 10 MG TABLET PO SCH (09:59)
[2023-06-14] MEDS: TIMOLOL 0.5% OPHTHALMIC SOL 5 ML BOTTLE OU SCH (09:59)
[2023-06-14] MEDS: ATENOLOL 50 MG TABLET (FP) PO SCH (09:59)
[2023-06-14] MEDS: MEMANTINE HCL 5 MG TABLET (UD) PO SCH ×2 (09:59→22:33)
[2023-06-14] MEDS: MULTIVIT-MINERALS ORAL LIQUID PO SCH (10:03)
[2023-06-14] MEDS: METHIMAZOLE 5 MG TABLET PO SCH (10:03)
[2023-06-14] MEDS: ASCORBIC ACID 250 MG TABLET (FP) PO SCH (10:03)
[2023-06-14] MEDS: D5-1/2NS+20 MEQ KCL - 20 MEQ/1,000 ML INFUS.BAG IV SCH ×2 (10:30→23:55)
[2023-06-14] MEDS: ATORVASTATIN CA 10 MG TABLET (FP) PO SCH (22:33)
[2023-06-15] MEDS: INSULIN (NOVOLOG) ASPART 100 UNITS/ML 10ML VIAL SQ SCH ×3 (06:10→16:36)
[2023-06-15] MEDS: dilTIAZem HCL 60 MG TABLET PO SCH ×3 (06:11→21:39)
[2023-06-15] MEDS: AMINO ACIDS/PROTEIN HYDROLYS 30 ML LIQUID.PKT PO SCH ×2 (08:18→16:36)
[2023-06-15 09:42] LABS: POTASSIUM 3.9 mmol/L (3.5-5.1)
[2023-06-15 09:46] LABS: BLOOD UREA NITROGEN 14.4 mg/dL (7-18); CALCIUM 8.4 mg/dL (8.5-10.1)
[2023-06-15 09:50] LABS: CREATININE 0.4 mg/dL (0.55-1.3)
[2023-06-15] MEDS: MULTIVIT-MINERALS ORAL LIQUID PO SCH (10:37)
[2023-06-15] MEDS: METHIMAZOLE 5 MG TABLET PO SCH (10:37)
[2023-06-15] MEDS: ENOXAPARIN NA (PORCINE) 40 MG/0.4 ML DISP.SYRIN SQ SCH (10:38)
[2023-06-15] MEDS: ATENOLOL 50 MG TABLET (FP) PO SCH (10:44)
[2023-06-15] MEDS: CEFTRIAXONE 2 GM in DEXTROSE 5%-WATER 100 ML IVPB SCH (10:44)
[2023-06-15] MEDS: MEMANTINE HCL 5 MG TABLET (UD) PO SCH ×2 (10:44→21:39)
[2023-06-15] MEDS: ASCORBIC ACID 250 MG TABLET (FP) PO SCH (10:44)
[2023-06-15] MEDS: LISINOPRIL 10 MG TABLET PO SCH (10:44)
[2023-06-15] MEDS: TIMOLOL 0.5% OPHTHALMIC SOL 5 ML BOTTLE OU SCH (10:45)
[2023-06-15] MEDS: D5-1/2NS+20 MEQ KCL - 20 MEQ/1,000 ML INFUS.BAG IV SCH (13:21)
[2023-06-15] MEDS: COLLAGENASE CLOSTRIDIUM HIST. 30 GRAMS TUBE TP SCH ×2 (16:07→16:08)
[2023-06-15] MEDS ORDERED: INSULIN (NOVOLOG) ASPART 100 UNITS/ML 10ML VIAL ONE (16:31)
[2023-06-15] MEDS: ATORVASTATIN CA 10 MG TABLET (FP) PO SCH (21:39)
[2023-06-16] MEDS: dilTIAZem HCL 60 MG TABLET PO SCH ×3 (06:18→21:06)
[2023-06-16] MEDS: INSULIN (NOVOLOG) ASPART 100 UNITS/ML 10ML VIAL SQ SCH ×3 (06:35→16:26)
[2023-06-16 08:32] LABS: BASO % 0.4 % (0-2.0); EOS % 2.1 % (0-4.5); HEMATOCRIT 33.3 % (32.4-45.2); HEMOGLOBIN 10.8 GM/dL (10.7-15.3); LYMPH % 14.1 % (8-40); MCH 28.5 pg (25.7-33.7); MCHC 32.3 g/dl (32.0-36.0); MEAN CELL VOLUME 88.2 fl (80-96); MEAN PLT VOLUME 8.6 fl (7.5-11.1); MONO % 4.7 % (3.8-10.2); NEUT % 78.7 % (42.8-82.8); PLATELET COUNT 169 10^3/uL (134-434); RBC 3.78 M/mm3 (3.60-5.2); RDW 14.1 % (11.6-15.6); WHITE BLOOD COUNT 6.8 K/mm3 (4.0-10.0)
[2023-06-16 08:40] LABS: POTASSIUM 3.8 mmol/L (3.5-5.1)
[2023-06-16 08:45] LABS: CALCIUM 8.3 mg/dL (8.5-10.1)
[2023-06-16 08:46] LABS: ALBUMIN 2.1 g/dl (3.4-5.0); BLOOD UREA NITROGEN 9.6 mg/dL (7-18)
[2023-06-16 08:49] LABS: CREATININE 0.4 mg/dL (0.55-1.3)
[2023-06-16 08:50] LABS: BILIRUBIN,TOTAL 0.3 mg/dL (0.2-1); TOT PROT 4.9 g/dl (6.4-8.2)
[2023-06-16] MEDS: ATENOLOL 50 MG TABLET (FP) PO SCH (11:26)
[2023-06-16] MEDS: MEMANTINE HCL 5 MG TABLET (UD) PO SCH ×2 (11:26→21:06)
[2023-06-16] MEDS: CEFTRIAXONE 2 GM in DEXTROSE 5%-WATER 100 ML IVPB SCH (11:26)
[2023-06-16] MEDS: LISINOPRIL 10 MG TABLET PO SCH (11:26)
[2023-06-16] MEDS: ENOXAPARIN NA (PORCINE) 40 MG/0.4 ML DISP.SYRIN SQ SCH (11:26)
[2023-06-16] MEDS: ASCORBIC ACID 250 MG TABLET (FP) PO SCH (11:26)
[2023-06-16] MEDS: AMINO ACIDS/PROTEIN HYDROLYS 30 ML LIQUID.PKT PO SCH ×2 (11:29→17:01)
[2023-06-16] MEDS: METHIMAZOLE 5 MG TABLET PO SCH (11:29)
[2023-06-16] MEDS: MULTIVIT-MINERALS ORAL LIQUID PO SCH (11:29)
[2023-06-16] MEDS: TIMOLOL 0.5% OPHTHALMIC SOL 5 ML BOTTLE OU SCH (11:30)
[2023-06-16] MEDS: D5-1/2NS+20 MEQ KCL - 20 MEQ/1,000 ML INFUS.BAG IV SCH (11:38)
[2023-06-16] MEDS: ATORVASTATIN CA 10 MG TABLET (FP) PO SCH (21:06)
[2023-06-17] MEDS: dilTIAZem HCL 60 MG TABLET PO SCH ×3 (05:55→22:17)
[2023-06-17] MEDS: INSULIN (NOVOLOG) ASPART 100 UNITS/ML 10ML VIAL SQ SCH ×3 (06:07→16:25)
[2023-06-17] MEDS: LISINOPRIL 10 MG TABLET PO SCH (10:11)
[2023-06-17] MEDS: MULTIVIT-MINERALS ORAL LIQUID PO SCH (10:11)
[2023-06-17] MEDS: MEMANTINE HCL 5 MG TABLET (UD) PO SCH ×2 (10:11→22:17)
[2023-06-17] MEDS: ATENOLOL 50 MG TABLET (FP) PO SCH (10:11)
[2023-06-17] MEDS: ASCORBIC ACID 250 MG TABLET (FP) PO SCH (10:11)
[2023-06-17] MEDS: CEFTRIAXONE 2 GM in DEXTROSE 5%-WATER 100 ML IVPB SCH (10:11)
[2023-06-17] MEDS: METHIMAZOLE 5 MG TABLET PO SCH (10:12)
[2023-06-17] MEDS: ENOXAPARIN NA (PORCINE) 40 MG/0.4 ML DISP.SYRIN SQ SCH (10:28)
[2023-06-17] MEDS: AMINO ACIDS/PROTEIN HYDROLYS 30 ML LIQUID.PKT PO SCH ×2 (10:28→16:41)
[2023-06-17] MEDS: TIMOLOL 0.5% OPHTHALMIC SOL 5 ML BOTTLE OU SCH (10:30)
[2023-06-17] MEDS ORDERED: INSULIN (NOVOLOG) ASPART 100 UNITS/ML 10ML VIAL ONE ×2 (11:10→17:38)
[2023-06-17 22:16] VITALS: BP 142/64; PULSE 60; RESP 20; TEMP 98.2
[2023-06-17] MEDS: ATORVASTATIN CA 10 MG TABLET (FP) PO SCH (22:17)
== END 2023-06-18 04:30 | DRG 689 ==
LOC: JER 19:48 → JERBED 06-11 01:38 → J7W 06-11 15:33
PROVIDERS: ADMIT Internal Medicine; ATTEND Internal Medicine
DX: N39.0 Urinary tract infection, site not specified (principal); L89.153 Pressure ulcer of sacral region, stage 3; E87.0 Hyperosmolality and hypernatremia; I24.89 Other forms of acute ischemic heart disease; I10 Essential (primary) hypertension; F03.90 Unspecified dementia, unspecified severity, without behavioral disturbance, psychotic disturbance, mood disturbance, and anxiety; E86.0 Dehydration; E78.5 Hyperlipidemia, unspecified; E87.6 Hypokalemia
CPT/HCPCS: 0241U-QW; 36415; 70450-TC; 71046-TC-FY; 71260-TC; 74177-TC; 80048; 80053; 81003; 82803; 82962; 83605; 83735; 84100; 84439; 84443; 84484; 85025; 85027; 87040; 87086; 87186; 87635; 93005; 93010; 99285-25; J3480; Q9967

== ENCOUNTER 2023-08-23 13:58 | Inpatient (IN) | payer OTHER, BC ==
[2023-08-23 15:01] LABS: BASO % 0.6 % (0-2.0); EOS % 2.3 % (0-4.5); HEMATOCRIT 39.1 % (32.4-45.2); LYMPH % 15.5 % (8-40); MCH 28.3 pg (25.7-33.7); MCHC 33.1 g/dl (32.0-36.0); MEAN CELL VOLUME 85.3 fl (80-96); MEAN PLT VOLUME 8.2 fl (7.5-11.1); NEUT % 73.6 % (42.8-82.8); PLATELET COUNT 342 10^3/uL (134-434); RBC 4.58 M/mm3 (3.60-5.2); RDW 16.6 % (11.6-15.6); WHITE BLOOD COUNT 8.6 K/mm3 (4.0-10.0)
[2023-08-23 15:09] LABS: INR 1.27 (0.83-1.09); PROTHROMBIN TIME (PATIENT) 14.7 SEC (9.7-13.0)
[2023-08-23 15:11] LABS: ACTIVATED PTT 33.9 SECONDS (25.2-36.5)
[2023-08-23 15:20] LABS: CHLORIDE 107 mmol/L (98-107); SODIUM 138 mmol/L (136-145)
[2023-08-23 15:23] LABS: ALBUMIN 2.8 g/dl (3.4-5.0); BLOOD UREA NITROGEN 20.1 mg/dL (7-18); CO2 28 mmol/L (21-32); GLUCOSE,RANDOM 98 mg/dL (74-106)
[2023-08-23 15:26] LABS: CREATININE 0.5 mg/dL (0.55-1.3); EPI CELLS 15 /uL (0-25.1); HYALINE CASTS 193 /uL (0-3.1); PH,URINE 6.5 (5.0-8.0); SGOT/AST 58 U/L (15-37); SGPT/ALT 14 U/L (13-61); URINE APPEARANCE TURBID; URINE BILIRUBIN 1+ (NEGATIVE); URINE COLOR RED; URINE GLUCOSE (UA) NEGATIVE (NEGATIVE); URINE KETONE NEGATIVE (NEGATIVE); URINE LEUK ESTERASE 3+ (NEGATIVE); URINE NITRITE POSITIVE (NEGATIVE); URINE PROTEIN 3+ (NEGATIVE); URINE WBC 2333 /uL (0-25.8)
[2023-08-23 15:27] LABS: BILIRUBIN,TOTAL 0.4 mg/dL (0.2-1); TOT PROT 7.1 g/dl (6.4-8.2)
[2023-08-23 15:29] LABS: ALK PHOS 97 U/L (45-117)
[2023-08-23 15:33] LABS: ANION GAP 3 mmol/L (4-13); POTASSIUM 7.2 mmol/L (3.5-5.1)
[2023-08-23 15:46] LABS: URINE BACTERIA 759 /uL (0-1359); URINE RBC 30518 /uL (0-23.9); YEAST NONE SEEN (NEGATIVE)
[2023-08-23] MEDS ORDERED: VANCOMYCIN/WATER 1250 MG 1,250 MG/250 ML BAG IVPB ONE ×2 (15:49→22:37)
[2023-08-23] MEDS ORDERED: CEFTRIAXONE 1,000 MG in DEXTROSE 5%-WATER - 50 ML IVPB ONE (15:49)
[2023-08-23] MEDS ORDERED: ACETAMINOPHEN 1000 MG/100 ML BAG IVPB ONE (15:49)
[2023-08-23] MEDS ORDERED: ACETAMINOPHEN INJECTION 100 ML IVPB ONE (15:53)
[2023-08-23] MEDS ORDERED: VANCOMYCIN 1 GRAM (PRE-DOCKED) 1,000 MG/250 ML BAG IVPB ONE (15:53)
[2023-08-23] MEDS ORDERED: CEFTRIAXONE 1 GM/50 ML BAG ONE (15:53)
[2023-08-23 16:52] LABS: POTASSIUM 4.1 mmol/L (3.5-5.1)
[2023-08-23 16:54] LABS: ALBUMIN 2.9 g/dl (3.4-5.0)
[2023-08-23 16:55] LABS: BLOOD UREA NITROGEN 18.5 mg/dL (7-18)
[2023-08-23 16:58] LABS: CREATININE 0.4 mg/dL (0.55-1.3)
[2023-08-23 16:59] LABS: BILIRUBIN,TOTAL 0.3 mg/dL (0.2-1); TOT PROT 6.6 g/dl (6.4-8.2)
[2023-08-23] MEDS: VANCOMYCIN/WATER 1250 MG 1,250 MG/250 ML BAG IVPB SCH ×2 (22:44→23:26)
[2023-08-24] MEDS ORDERED: VANCOMYCIN/WATER 1250 MG 1,250 MG/250 ML BAG IVPB SCH (04:00)
[2023-08-24 07:34] LABS: HEMATOCRIT 34.5 % (32.4-45.2); HEMOGLOBIN 11.3 GM/dL (10.7-15.3); MCH 28.1 pg (25.7-33.7); MCHC 32.8 g/dl (32.0-36.0); MEAN CELL VOLUME 85.9 fl (80-96); MEAN PLT VOLUME 8.3 fl (7.5-11.1); PLATELET COUNT 273 10^3/uL (134-434); RBC 4.02 M/mm3 (3.60-5.2)
[2023-08-24 07:51] LABS: POTASSIUM 3.9 mmol/L (3.5-5.1)
[2023-08-24 08:08] LABS: CALCIUM 9.7 mg/dL (8.5-10.1)
[2023-08-24 08:09] LABS: ALBUMIN 2.7 g/dl (3.4-5.0); BLOOD UREA NITROGEN 17.6 mg/dL (7-18); MAGNESIUM 1.9 mg/dL (1.8-2.4)
[2023-08-24 08:12] LABS: CREATININE 0.4 mg/dL (0.55-1.3); PHOSPHOROUS 3.2 mg/dL (2.5-4.9)
[2023-08-24 08:13] LABS: TOT PROT 6.1 g/dl (6.4-8.2)
[2023-08-24 08:14] LABS: BILIRUBIN,TOTAL 0.3 mg/dL (0.2-1)
[2023-08-24] MEDS ORDERED: COLLAGENASE CLOSTRIDIUM HIST. 30 GRAMS TUBE TP SCH (10:00)
[2023-08-24] MEDS ORDERED: MEMANTINE HCL 5 MG TABLET (UD) PO SCH (10:00)
[2023-08-24] MEDS ORDERED: ZINC SULFATE 220 MG TABLET PO SCH (11:00)
[2023-08-24] MEDS: MEMANTINE HCL 5 MG TABLET (UD) PO SCH ×2 (11:43→22:47)
[2023-08-24] MEDS: CHOLECALCIFEROL (VIT D3 5000 UNITS) 125 MCG TAB PO SCH (11:43)
[2023-08-24] MEDS: METHIMAZOLE 5 MG TABLET PO SCH (11:43)
[2023-08-24] MEDS ORDERED: ATENOLOL 50 MG TABLET (FP) ONE (11:45)
[2023-08-24] MEDS ORDERED: LISINOPRIL 10 MG TABLET ONE (11:45)
[2023-08-24] MEDS ORDERED: CEFTRIAXONE 1 GM/50 ML BAG ONE (11:46)
[2023-08-24] MEDS: LISINOPRIL 10 MG TABLET PO SCH (11:49)
[2023-08-24] MEDS: CEFTRIAXONE 1 GM in DEXTROSE 5%-WATER - 50 ML IVPB SCH (11:49)
[2023-08-24] MEDS: ATENOLOL 50 MG TABLET (FP) PO SCH (11:49)
[2023-08-24] MEDS: dilTIAZem HCL 60 MG TABLET PO SCH ×2 (14:00→22:42)
[2023-08-24] MEDS ORDERED: BISACODYL 10 MG SUPP.RECT PR ONE (16:00)
[2023-08-24] MEDS: TIMOLOL 0.5% OPHTHALMIC SOL 5 ML BOTTLE OU SCH (17:24)
[2023-08-24 18:56] VITALS: BMI 25.2
[2023-08-24] MEDS: ATORVASTATIN CA 10 MG TABLET (FP) PO SCH (22:46)
[2023-08-25] MEDS: VANCOMYCIN/WATER 1250 MG 1,250 MG/250 ML BAG IVPB SCH (01:03)
[2023-08-25] MEDS: dilTIAZem HCL 60 MG TABLET PO SCH ×3 (06:41→21:46)
[2023-08-25] MEDS: METHIMAZOLE 5 MG TABLET PO SCH (09:36)
[2023-08-25] MEDS: LISINOPRIL 10 MG TABLET PO SCH (09:36)
[2023-08-25] MEDS: ATENOLOL 50 MG TABLET (FP) PO SCH (09:36)
[2023-08-25] MEDS: ZINC SULFATE 220 MG CAPSULE (FP) PO SCH (09:36)
[2023-08-25] MEDS: ASCORBIC ACID 500 MG TABLET (FP) PO SCH (09:36)
[2023-08-25] MEDS: CEFTRIAXONE 1 GM in DEXTROSE 5%-WATER - 50 ML IVPB SCH (09:36)
[2023-08-25] MEDS: TIMOLOL 0.5% OPHTHALMIC SOL 5 ML BOTTLE OU SCH (09:37)
[2023-08-25] MEDS: MEMANTINE HCL 5 MG TABLET (UD) PO SCH ×2 (09:37→21:52)
[2023-08-25] MEDS: CHOLECALCIFEROL (VIT D3 5000 UNITS) 125 MCG TAB PO SCH (09:38)
[2023-08-25 09:40] VITALS: RESP 18
[2023-08-25] MEDS ORDERED: MAGNESIUM HYDROX 2400MG/30ML ORAL SUSPENSION 30 ML CUP PO PRN (16:19)
[2023-08-25] MEDS ORDERED: LACTATED RINGERS SOLUTION 1,000 ML/1,000 ML INFUS.BAG IV SCH (17:30)
[2023-08-25] MEDS: SODIUM CHLORIDE 0.45%/POT 20 MEQ/1,000 ML INFUS.BAG IV SCH (17:38)
[2023-08-25] MEDS: AMINO ACIDS/PROTEIN HYDROLYS 30 ML LIQUID.PKT PO SCH (17:39)
[2023-08-25] MEDS: APIXABAN 5 MG TABLET PO SCH (21:49)
[2023-08-25] MEDS: ATORVASTATIN CA 10 MG TABLET (FP) PO SCH (21:51)
[2023-08-26] MEDS: dilTIAZem HCL 60 MG TABLET PO SCH ×3 (06:32→23:01)
[2023-08-26] MEDS: METHIMAZOLE 5 MG TABLET PO SCH (09:37)
[2023-08-26] MEDS: ATENOLOL 50 MG TABLET (FP) PO SCH (09:37)
[2023-08-26] MEDS: AMINO ACIDS/PROTEIN HYDROLYS 30 ML LIQUID.PKT PO SCH ×2 (09:37→17:48)
[2023-08-26] MEDS: LISINOPRIL 10 MG TABLET PO SCH (09:37)
[2023-08-26] MEDS: ASCORBIC ACID 500 MG TABLET (FP) PO SCH (09:37)
[2023-08-26] MEDS: ZINC SULFATE 220 MG CAPSULE (FP) PO SCH (09:37)
[2023-08-26] MEDS: CEFTRIAXONE 1 GM in DEXTROSE 5%-WATER - 50 ML IVPB SCH (09:37)
[2023-08-26] MEDS: APIXABAN 5 MG TABLET PO SCH ×3 (09:37→23:15)
[2023-08-26] MEDS: MEMANTINE HCL 5 MG TABLET (UD) PO SCH ×2 (09:38→23:02)
[2023-08-26] MEDS: TIMOLOL 0.5% OPHTHALMIC SOL 5 ML BOTTLE OU SCH (09:41)
[2023-08-26] MEDS ORDERED: CHOLECALCIFEROL (VIT D3) 5000 UNITS (125 MCG) CAP PO SCH (10:45)
[2023-08-26] MEDS: CHOLECALCIFEROL (VIT D3) 5000 UNITS (125 MCG) CAP PO SCH (11:45)
[2023-08-26] MEDS: CHOLECALCIFEROL (VIT D3 5000 UNITS) 125 MCG TAB PO SCH (11:46)
[2023-08-26] MEDS: SODIUM CHLORIDE 0.45%/POT 20 MEQ/1,000 ML INFUS.BAG IV SCH (17:48)
[2023-08-26] MEDS: ATORVASTATIN CA 10 MG TABLET (FP) PO SCH (23:02)
[2023-08-27] MEDS: SODIUM CHLORIDE 0.45%/POT 20 MEQ/1,000 ML INFUS.BAG IV SCH ×2 (04:09→17:35)
[2023-08-27] MEDS: dilTIAZem HCL 60 MG TABLET PO SCH ×3 (05:38→22:02)
[2023-08-27 09:40] LABS: BASO % 0.2 % (0-2.0); HEMATOCRIT 34.5 % (32.4-45.2); MCH 27.6 pg (25.7-33.7); MEAN CELL VOLUME 86.3 fl (80-96); MEAN PLT VOLUME 8.4 fl (7.5-11.1); MONO % 7.8 % (3.8-10.2); PLATELET COUNT 291 10^3/uL (134-434); RDW 15.8 % (11.6-15.6); WHITE BLOOD COUNT 8.3 K/mm3 (4.0-10.0)
[2023-08-27 10:01] LABS: POTASSIUM 4.2 mmol/L (3.5-5.1)
[2023-08-27 10:10] LABS: ALBUMIN 2.4 g/dl (3.4-5.0); BLOOD UREA NITROGEN 14.2 mg/dL (7-18); CALCIUM 9.7 mg/dL (8.5-10.1)
[2023-08-27 10:13] LABS: CREATININE 0.3 mg/dL (0.55-1.3)
[2023-08-27 10:15] LABS: BILIRUBIN,TOTAL 0.3 mg/dL (0.2-1)
[2023-08-27] MEDS: AMINO ACIDS/PROTEIN HYDROLYS 30 ML LIQUID.PKT PO SCH ×2 (10:16→17:37)
[2023-08-27] MEDS: ASCORBIC ACID 500 MG TABLET (FP) PO SCH (10:22)
[2023-08-27] MEDS: APIXABAN 5 MG TABLET PO SCH ×2 (10:22→22:01)
[2023-08-27] MEDS: ZINC SULFATE 220 MG CAPSULE (FP) PO SCH (10:22)
[2023-08-27] MEDS: CEFTRIAXONE 1 GM in DEXTROSE 5%-WATER - 50 ML IVPB SCH (10:22)
[2023-08-27] MEDS: LISINOPRIL 10 MG TABLET PO SCH (10:22)
[2023-08-27] MEDS: ATENOLOL 50 MG TABLET (FP) PO SCH (10:23)
[2023-08-27] MEDS: CHOLECALCIFEROL (VIT D3) 5000 UNITS (125 MCG) CAP PO SCH (10:23)
[2023-08-27] MEDS: METHIMAZOLE 5 MG TABLET PO SCH (10:23)
[2023-08-27] MEDS: MEMANTINE HCL 5 MG TABLET (UD) PO SCH ×2 (10:23→22:03)
[2023-08-27] MEDS: TIMOLOL 0.5% OPHTHALMIC SOL 5 ML BOTTLE OU SCH (10:24)
[2023-08-27] MEDS: ATORVASTATIN CA 10 MG TABLET (FP) PO SCH (22:01)
[2023-08-28] MEDS: SODIUM CHLORIDE 0.45%/POT 20 MEQ/1,000 ML INFUS.BAG IV SCH (04:08)
[2023-08-28] MEDS: dilTIAZem HCL 60 MG TABLET PO SCH ×3 (05:42→22:22)
[2023-08-28] MEDS: AMINO ACIDS/PROTEIN HYDROLYS 30 ML LIQUID.PKT PO SCH ×2 (09:42→17:25)
[2023-08-28] MEDS: METHIMAZOLE 5 MG TABLET PO SCH (09:42)
[2023-08-28] MEDS: ATENOLOL 50 MG TABLET (FP) PO SCH (09:42)
[2023-08-28] MEDS: LISINOPRIL 10 MG TABLET PO SCH (09:42)
[2023-08-28] MEDS: ZINC SULFATE 220 MG CAPSULE (FP) PO SCH (09:42)
[2023-08-28] MEDS: ASCORBIC ACID 500 MG TABLET (FP) PO SCH (09:42)
[2023-08-28] MEDS: APIXABAN 5 MG TABLET PO SCH ×2 (09:42→22:21)
[2023-08-28] MEDS: MEMANTINE HCL 5 MG TABLET (UD) PO SCH ×2 (09:43→22:48)
[2023-08-28] MEDS: CEFTRIAXONE 1 GM in DEXTROSE 5%-WATER - 50 ML IVPB SCH (09:43)
[2023-08-28] MEDS: TIMOLOL 0.5% OPHTHALMIC SOL 5 ML BOTTLE OU SCH (09:47)
[2023-08-28] MEDS ORDERED: COLLAGENASE CLOSTRIDIUM HIST. 30 GRAMS TUBE TP SCH (10:00)
[2023-08-28] MEDS: CHOLECALCIFEROL (VIT D3) 5000 UNITS (125 MCG) CAP PO SCH (12:29)
[2023-08-28 12:58] LABS: BASO % 0.5 % (0-2.0); EOS % 1.4 % (0-4.5); HEMATOCRIT 30.6 % (32.4-45.2); HEMOGLOBIN 10.2 GM/dL (10.7-15.3); MCH 28.4 pg (25.7-33.7); MCHC 33.4 g/dl (32.0-36.0); MEAN CELL VOLUME 85.1 fl (80-96); MEAN PLT VOLUME 8.7 fl (7.5-11.1); MONO % 7.3 % (3.8-10.2); NEUT % 81.8 % (42.8-82.8); PLATELET COUNT 259 10^3/uL (134-434); RDW 16.1 % (11.6-15.6); WHITE BLOOD COUNT 7.6 K/mm3 (4.0-10.0)
[2023-08-28 13:23] LABS: POTASSIUM 3.8 mmol/L (3.5-5.1)
[2023-08-28 13:28] LABS: ALBUMIN 2.2 g/dl (3.4-5.0); BLOOD UREA NITROGEN 15.6 mg/dL (7-18); CALCIUM 9.2 mg/dL (8.5-10.1)
[2023-08-28 13:31] LABS: CREATININE 0.3 mg/dL (0.55-1.3)
[2023-08-28 13:33] LABS: BILIRUBIN,TOTAL 0.2 mg/dL (0.2-1); TOT PROT 5.5 g/dl (6.4-8.2)
[2023-08-28 22:18] VITALS: BP 134/92; PULSE 65; TEMP 97.7
[2023-08-28] MEDS: ATORVASTATIN CA 10 MG TABLET (FP) PO SCH (22:20)
== END 2023-08-28 23:39 | DRG 689 ==
LOC: JER 13:58 → JERBED 15:50 → J8W 08-24 17:54
PROVIDERS: ADMIT Internal Medicine; ATTEND Internal Medicine
DX: N39.0 Urinary tract infection, site not specified (principal); L89.154 Pressure ulcer of sacral region, stage 4; F03.90 Unspecified dementia, unspecified severity, without behavioral disturbance, psychotic disturbance, mood disturbance, and anxiety; I10 Essential (primary) hypertension; E78.5 Hyperlipidemia, unspecified; Z86.718 Personal history of other venous thrombosis and embolism; E11.9 Type 2 diabetes mellitus without complications; K21.9 Gastro-esophageal reflux disease without esophagitis; E05.90 Thyrotoxicosis, unspecified without thyrotoxic crisis or storm; M25.562 Pain in left knee; R31.0 Gross hematuria; D64.9 Anemia, unspecified
CPT/HCPCS: 0241U-QW; 36415; 71045-TC-FY; 71260-TC; 73562-TC-LT-FY; 74177-TC; 80053; 81003; 83735; 84100; 85025; 85027; 85610; 85730; 86850; 86900; 86901; 87086; 87186; 93005; 93010; 97116-GP; 97161-GP; 99285-25; E0186; J3480; Q9967

== ENCOUNTER 2024-10-21 17:53 | Inpatient (IN) | payer OTHER, BC ==
[2024-10-21 19:05] LABS: EPI CELLS 10 /uL (0-25.1); HYALINE CASTS 2 /uL (0-3.1); PH,URINE 5.5 (5.0-8.0); URINE APPEARANCE CLEAR; URINE BACTERIA 272 /uL (0-1359); URINE BILIRUBIN NEGATIVE (NEGATIVE); URINE COLOR YELLOW; URINE GLUCOSE (UA) NEGATIVE (NEGATIVE); URINE KETONE NEGATIVE (NEGATIVE); URINE LEUK ESTERASE 2+ (NEGATIVE); URINE NITRITE NEGATIVE (NEGATIVE); URINE PROTEIN 1+ (NEGATIVE); URINE RBC 70 /uL (0-23.9); URINE WBC 435 /uL (0-25.8)
[2024-10-21 19:14] LABS: INR 1.07 (0.83-1.09); PROTHROMBIN TIME (PATIENT) 11.7 SEC (9.7-13.0)
[2024-10-21 19:16] LABS: ACTIVATED PTT 26.6 SECONDS (25.2-36.5)
[2024-10-21 19:22] LABS: ABSOLUTE IMMATURE GRANULOCYTES 0.06 x10^3/uL (0.0-0.031); BASOPHILS # 0.02 x10^3/uL (0.01-0.08); EOSINOPHIL % 1.1 % (0.7-5.8); EOSINOPHILS # 0.11 x10^3/uL (0.04-0.36); HEMATOCRIT 47.2 % (34.1-44.9); HEMOGLOBIN 13.9 g/dL (11.2-15.7); MCHC 29.4 g/dl (32.2-35.5); MEAN CELL VOLUME 99.4 fl (79.4-94.8); MONOCYTE # 0.73 x10^3/uL (0.24-0.86); MONOCYTE % 7.2 % (4.7-12.5); PLATELET COUNT # 213 x10^3/uL (182-369); RDW 15.4 % (12.4-16.6)
[2024-10-21 19:57] LABS: POTASSIUM 3.3 mmol/L (3.5-5.1)
[2024-10-21 19:58] LABS: ALBUMIN 3.1 g/dl (3.4-5.0); MAGNESIUM 2.3 mg/dL (1.8-2.4)
[2024-10-21 20:01] LABS: BLOOD UREA NITROGEN 36.1 mg/dL (7-18); CREATININE 0.6 mg/dL (0.55-1.3); PHOSPHOROUS 2.4 mg/dL (2.5-4.9)
[2024-10-21 20:02] LABS: BILIRUBIN,TOTAL 0.7 mg/dL (0.2-1); TOT PROT 6.2 g/dl (6.4-8.2)
[2024-10-21 21:01] LABS: VENOUS BASE EXCESS 6.2 mmol/L (-2-2); VENOUS O2 SATURATION 97.8 % (70-80); VENOUS PCO2 44.2 mmHg (38-52); VENOUS PH 7.462 (7.310-7.410)
[2024-10-21] MEDS ORDERED: PIPERACILLIN/TAZOB 3.375 GM 3.375 GM/50 ML BAG IVPB ONE (21:33)
[2024-10-21] MEDS: SODIUM CHLORIDE 0.9% 1000 ML INFUS.BAG IV ONE (21:40)
[2024-10-21] MEDS: PIPERACILLIN/TAZOB 3.375 GM 3.375 GM in DEXTROSE 5%-WATER - 50 ML IVPB ONE (21:40)
[2024-10-21] MEDS ORDERED: ACETAMINOPHEN INJECTION 100 ML ONE (22:16)
[2024-10-21] MEDS: ACETAMINOPHEN 1000 MG/100 ML BAG IVPB ONE (23:03)
[2024-10-21] MEDS ORDERED: KETOROLAC TROMETHAMINE 15 MG/ML VIAL ONE (23:38)
[2024-10-22] MEDS: KETOROLAC TROMETHAMINE 15 MG/ML VIAL IVPUSH ONE (00:05)
[2024-10-22] MEDS ORDERED: DEXTROSE 5%-WATER - 1,000 ML IV SCH (01:45)
[2024-10-22 04:16] VITALS: BMI 24.4
[2024-10-22] MEDS ORDERED: ALBUTEROL SO4 2.5/IPRATROPIUM 0.5 INH SOL 3 ML VIAL.NEB. NEB PRN (05:24)
[2024-10-22] MEDS: DEXTROSE 5%-WATER - 1,000 ML IV SCH ×2 (06:06→12:18)
[2024-10-22] MEDS: dilTIAZem HCL 60 MG TABLET PO SCH (06:48)
[2024-10-22 08:42] LABS: HEMATOCRIT 43.4 % (34.1-44.9); HEMOGLOBIN 12.7 g/dL (11.2-15.7); MCHC 29.3 g/dl (32.2-35.5); MEAN CELL VOLUME 101.4 fl (79.4-94.8); MEAN PLT VOLUME 10.6 fl (9.4-12.3); PLATELET COUNT # 165 x10^3/uL (182-369); RDW 15.3 % (12.4-16.6)
[2024-10-22 09:08] LABS: POTASSIUM 3.1 mmol/L (3.5-5.1)
[2024-10-22 09:11] LABS: CALCIUM 9.3 mg/dL (8.5-10.1)
[2024-10-22 09:12] LABS: ALBUMIN 2.8 g/dl (3.4-5.0); BLOOD UREA NITROGEN 35.5 mg/dL (7-18)
[2024-10-22 09:15] LABS: CREATININE 0.4 mg/dL (0.55-1.3)
[2024-10-22 09:17] LABS: BILIRUBIN,TOTAL 0.6 mg/dL (0.2-1); TOT PROT 5.6 g/dl (6.4-8.2)
[2024-10-22] MEDS: CEFTRIAXONE 1 G/50 ML PREMIX 50 ML IVPB SCH (09:26)
[2024-10-22] MEDS: ENOXAPARIN NA (PORCINE) 40 MG/0.4 ML DISP.SYRIN SQ SCH (09:26)
[2024-10-22] MEDS: ATENOLOL PO SCH (09:27)
[2024-10-22] MEDS: METHIMAZOLE 5 MG TABLET PO SCH (09:27)
[2024-10-22] MEDS: ZINC SULFATE 220 MG CAPSULE (FP) PO SCH (09:27)
[2024-10-22] MEDS: MEMANTINE HCL 5 MG TABLET (UD) PO SCH (09:27)
[2024-10-22] MEDS: LISINOPRIL 20 MG TABLET PO SCH (09:27)
[2024-10-22] MEDS ORDERED: ATENOLOL 50 MG TABLET (FP) PO SCH (10:00)
[2024-10-22 10:39] LABS: MAGNESIUM 2.4 mg/dL (1.8-2.4)
[2024-10-22 10:42] LABS: PHOSPHOROUS 2.2 mg/dL (2.5-4.9)
[2024-10-22] MEDS: POTASSIUM CHLORIDE ORAL LIQUID 20 MEQ/15 ML PO ONE (12:33)
[2024-10-22] MEDS: POTASSIUM PHOSPHATE 30 MM in SODIUM CHLORIDE 500 ML IVPB ONE (13:10)
[2024-10-22 15:43] LABS: POTASSIUM 4.9 mmol/L (3.5-5.1)
[2024-10-22 15:45] LABS: CALCIUM 9.1 mg/dL (8.5-10.1)
[2024-10-22 15:46] LABS: BLOOD UREA NITROGEN 31.2 mg/dL (7-18)
[2024-10-22 15:49] LABS: CREATININE 0.5 mg/dL (0.55-1.3)
[2024-10-22] MEDS: SERTRALINE HCL 50 MG TABLET (FP) PO SCH (22:13)
[2024-10-22] MEDS: TIMOLOL 0.5% OPHTHALMIC SOL 5 ML BOTTLE OU SCH (22:16)
[2024-10-23] MEDS ORDERED: dilTIAZem HCL 60 MG TABLET PO SCH (08:01)
[2024-10-23 09:27] LABS: POTASSIUM 3.4 mmol/L (3.5-5.1)
[2024-10-23 09:52] LABS: BLOOD UREA NITROGEN 23.4 mg/dL (7-18)
[2024-10-23 09:55] LABS: ABSOLUTE IMMATURE GRANULOCYTES 0.03 x10^3/uL (0.0-0.031); BASOPHILS # 0.02 x10^3/uL (0.01-0.08); CREATININE 0.4 mg/dL (0.55-1.3); HEMATOCRIT 39.8 % (34.1-44.9); HEMOGLOBIN 11.6 g/dL (11.2-15.7); MCHC 29.1 g/dl (32.2-35.5); MEAN CELL VOLUME 99.5 fl (79.4-94.8); MEAN PLT VOLUME 11.4 fl (9.4-12.3); MONOCYTE # 0.37 x10^3/uL (0.24-0.86); MONOCYTE % 5.6 % (4.7-12.5); PHOSPHOROUS 1.9 mg/dL (2.5-4.9); PLATELET COUNT # 167 x10^3/uL (182-369); RDW 15.4 % (12.4-16.6)
[2024-10-23 09:56] LABS: MAGNESIUM 2.3 mg/dL (1.8-2.4)
[2024-10-23] MEDS: APIXABAN 5 MG TABLET PO SCH (10:30)
[2024-10-23] MEDS: ZINC SULFATE 220 MG CAPSULE (FP) PO SCH (10:30)
[2024-10-23] MEDS: ASCORBIC ACID 500 MG TABLET (FP) PO SCH (10:32)
[2024-10-23] MEDS: TIMOLOL MALEATE 0.5% GFS OPHTHALMIC SOLN 5 ML BOTTLE OU SCH (10:33)
[2024-10-23] MEDS: DEXTROSE 5%-WATER - 1,000 ML IV SCH ×2 (10:54→20:30)
[2024-10-23 12:28] VITALS: RESP 18
[2024-10-23] MEDS: dilTIAZem HCL 30 MG TABLET PO SCH (14:28)
[2024-10-23] MEDS: POTASSIUM PHOSPHATE 30 MM in SODIUM CHLORIDE 500 ML IVPB ONE (15:13)
[2024-10-23 16:51] LABS: POTASSIUM 3.8 mmol/L (3.5-5.1)
[2024-10-23 16:53] LABS: BLOOD UREA NITROGEN 19.6 mg/dL (7-18)
[2024-10-23 16:56] LABS: CREATININE 0.4 mg/dL (0.55-1.3)
[2024-10-24 08:36] LABS: ABSOLUTE IMMATURE GRANULOCYTES 0.04 x10^3/uL (0.0-0.031); BASOPHILS # 0.02 x10^3/uL (0.01-0.08); EOSINOPHIL % 2.2 % (0.7-5.8); EOSINOPHILS # 0.16 x10^3/uL (0.04-0.36); HEMATOCRIT 40.5 % (34.1-44.9); MCHC 29.6 g/dl (32.2-35.5); MEAN CELL VOLUME 97.8 fl (79.4-94.8); MONOCYTE # 0.46 x10^3/uL (0.24-0.86); MONOCYTE % 6.4 % (4.7-12.5); PLATELET COUNT # 164 x10^3/uL (182-369)
[2024-10-24 09:23] LABS: POTASSIUM 3.6 mmol/L (3.5-5.1)
[2024-10-24 09:58] LABS: BLOOD UREA NITROGEN 12.6 mg/dL (7-18); CALCIUM 9.1 mg/dL (8.5-10.1)
[2024-10-24 10:02] LABS: CREATININE 0.3 mg/dL (0.55-1.3)
[2024-10-24 15:10] VITALS: BP 116/62; PULSE 60; TEMP 98.2
== END 2024-10-24 16:54 | DRG 640 ==
LOC: JER 17:53 → JERBED 10-22 01:25 → J5S 10-22 03:30
PROVIDERS: ADMIT Hospitalist; ATTEND Internal Medicine
DX: E87.0 Hyperosmolality and hypernatremia (principal); L89.154 Pressure ulcer of sacral region, stage 4; F03.90 Unspecified dementia, unspecified severity, without behavioral disturbance, psychotic disturbance, mood disturbance, and anxiety; I10 Essential (primary) hypertension; E78.5 Hyperlipidemia, unspecified; E11.9 Type 2 diabetes mellitus without complications; K21.9 Gastro-esophageal reflux disease without esophagitis; N20.0 Calculus of kidney; Z86.718 Personal history of other venous thrombosis and embolism
CPT/HCPCS: 0241U-QW; 36415; 70450-TC; 71045-TC-FY; 74176-TC; 80048; 80053; 81003; 82803; 83605; 83735; 83935; 84100; 84484; 85025; 85027; 85610; 85730; 86850; 86900; 86901; 87040; 87070; 87086; 87186; 87205; 93005; 93010; 97162-GP; 99285-25; J0131